=== PATIENT | male | born 1960 | race Caucasian/White ===

== ENCOUNTER 2021-01-19 07:42 | Outpatient (CLI) | payer OTHER, SELFPAY ==
--- NOTE | ~2021-01-19 | CT_ITS ---
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 CT of the abdomen and pelvis was then performed with a total of 100 mL Omnipaque 350 intravenous contrast. The dose-length product (DLP) was 466.83 mGy-cm. Automated exposure control and iterative reconstruct ion technique were employed. COMPARISON: None FINDINGS: Minimal dependent atelectasis is present in the lung bases. The heart size is normal. Cysts of the liver measure up to 7 mm in the right hepatic lobe. The spleen, pancreas, gallbladder, and ad renal glands are normal. There is an 8.8 x 6.6 cm cyst of the right kidney. No suspicious renal or ur othelial lesion is identified. There is no hydronephrosis or hydroureter. There is a 2 mm nonobstruct ing stone in the lower pole of the right kidney. There are at least six nonobstructing stones of the left kidney which measure up to 4 mm. There is calcified atherosclerosis of the aorta and many of the other arteries. No pathologically enlarged abdominal or pelvic lymph nodes are identified. A moderat e volume of colonic stool is present. There is mild lumbar spondylosis. IMPRESSION: 1. No suspicious renal or urothelial lesion identified. 2. Bilateral nonobstructing nephrolithiasis. Reviewed, dictated and finalized at location B. RTAINMENT MUSICIAN
--- NOTE | ~2021-01-19 | XR_ITS ---
EXAMINATION: XR abdomen/kub 1V INDICATION: Neoplasm of the right kidney. TECHNIQUE: Supine views of the abdomen were obtained on 2 radiographs. COMPARISON: CT from today FINDINGS: Bowel contents project over the kidneys limiting sensitivity for renal stones. Stones of the left kid valentino measure up to 4 mm. No stones are identified along the expected courses of the ureters or within the urinary bladder. A moderate volume of colonic stool is present. The visualized lung bases are marissa ar. There is mild osteoarthritis of the hips. IMPRESSION: 1. Left nephrolithiasis. Reviewed, dictated and finalized at location B. 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 Left nephrolithiasis.
[2021-01-19 08:12] LABS: Estimated Glomerular Filt Rate > 60
== END 2021-01-19 07:43 | disposition home or self-care (01) ==
PROVIDERS: PCP Internal Medicine; Visit Provider Urology
DX: C64.1 Malignant neoplasm of right kidney, except renal pelvis (principal); N20.0 Calculus of kidney
CPT/HCPCS: 74018; 74178; Q9967